=== PATIENT | male | born 1995 ===

== ENCOUNTER 2022-01-21 12:56 | Emergency (ER) | payer SELFPAY ==
[2022-01-21] MEDS ORDERED: Tetracaine HCl/PF 0.5% 4 ML Bottle EYEBOTH STA (13:53)
== END 2022-01-21 14:51 | disposition home or self-care (01) ==
LOC: MW.ED 12:56
DX: H01.002 Unspecified blepharitis right lower eyelid (principal)
CPT/HCPCS: 99283